=== PATIENT | female | born 1980 | race Caucasian/White ===

== ENCOUNTER 2019-09-16 22:47 | Emergency (ER) | payer OTHER, SELFPAY ==
[2019-09-16 22:55] VITALS: BP 135/85; PULSE 93; RESP 18; TEMP 36.8; O2SAT 100
--- NOTE | 2019-09-16 23:13 | PC.NURSE ---
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 Pt. tearful and crying thru process. Then pt. requests to sign AMA form and doesn't want to stay for further eval. or testing. Pt. reports not wanting to come to hospital anyway and that she has no phone and no one to call. AMA form signed by pt. c all risks/benefits explained. Pt. [place] AMA prior to ERP evaluation.
== END 2019-09-16 23:18 | disposition left against medical advice (07) ==
LOC: CHSED 22:52
PROVIDERS: Emergency Provider Emergency Medicine; PCP Family Medicine
DX: Z53.8 Procedure and treatment not carried out for other reasons (principal)
CPT/HCPCS: 99199

== ENCOUNTER 2019-09-17 01:11 | Emergency (ER) | payer OTHER, SELFPAY ==
--- NOTE | ~2019-09-17 | CT_ITS ---
EXAMINATION: CT cervical spine wo con DATE: 09/17/2019 02:21 INDICATION: Neck pain TECHNIQUE: Computed tomography (CT) of the cervical spine was performed without intravenous contrast. The dose-length product (DLP) was 343.86 mGy-cm. Automated exposure control and iterative reconstruc tion technique were employed. COMPARISON: None FINDINGS: There is no fracture, dislocation, or subluxation. The vertebral body heights, alignment, a nd intervertebral disc spaces are normal. The odontoid is intact. The prevertebral soft tissues are n ormal. IMPRESSION: 1. No acute osseous abnormality. Reviewed, dictated and finalized at location A.
--- NOTE | ~2019-09-17 | CT_ITS ---
EXAMINATION: CT brain wo con DATE: 09/17/2019 02:20 INDICATION: Head injury. TECHNIQUE: Computed tomography (CT) of the head was performed without intravenous contrast. The mA wa s adjusted according to patient size. Iterative reconstruction technique was employed. The dose-lengt h product was 605.33 mGy-cm. COMPARISON: None FINDINGS: There is no intracranial hemorrhage, acute infarction, or abnormal intracranial mass lesion . The ventricles are normal in size. The mastoid air cells are normal. The paranasal sinuses are alok r. The orbits are normal. There is soft tissue swelling of the right parietal scalp. IMPRESSION: 1. Normal brain. Reviewed, dictated and finalized at location A. IMPRESSION: 1. Normal brain.
--- NOTE | ~2019-09-17 | CT_ITS ---
EXAMINATION: CT facial bones wo con DATE: 09/17/2019 02:22 INDICATION: Right-sided facial pain and swelling TECHNIQUE: Computed tomography (CT) of the facial bones and maxillofacial region was performed withou t intravenous contrast. The dose-length product (DLP) was 343.12 mGy-cm. Automated exposure control a nd iterative reconstruction technique were employed. COMPARISON: None. FINDINGS: There is right facial soft tissue swelling. No facial bone fracture is identified. Bone ali gnment is normal. The globes are intact. There is mild mucosal thickening anteriorly in the right max illary sinus. The paranasal sinuses are otherwise well aerated. The mastoid air cells are clear. IMPRESSION: 1. Right facial soft tissue swelling without acute facial bone fracture. Reviewed, dictated and finalized at location A.
[2019-09-17 01:18] VITALS: BP 149/86; PULSE 97; RESP 18; TEMP 36.6; O2SAT 97
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
[2019-09-17] MEDS: KETOROLAC (*BKC) 60 MG/2 ML VIAL IM (01:38)
[2019-09-17 01:52] LABS: Pregnancy On Board Control Positive; Urine Pregnancy Test Negative
[2019-09-17 02:58] VITALS: BP 119/72; PULSE 87; RESP 18; TEMP 36.6; O2SAT 99
== END 2019-09-17 03:04 | disposition home or self-care (01) ==
PROVIDERS: Emergency Provider Emergency Medicine; PCP Family Medicine
DX: S06.0X0A Concussion without loss of consciousness, initial encounter (principal); S00.83XA Contusion of other part of head, initial encounter; Y04.2XXA Assault by strike against or bumped into by another person, initial encounter
CPT/HCPCS: 70450; 70486; 72125; 81025; 96372; 99283; 99284; J1885

== ENCOUNTER 2020-03-05 08:13 | Emergency (ER) | payer OTHER, SELFPAY ==
--- NOTE | ~2020-03-05 | CT_ITS ---
EXAMINATION: CT brain wo con INDICATION: Bilateral arm weakness COMPARISON: 09/17/2019 TECHNIQUE: Standard unenhanced head CT. The dose-length product (DLP) was 605.33 mGy-cm. The mA was a djusted according to patient size. Iterative reconstruction technique was employed. FINDINGS: There is no intracranial hemorrhage, acute infarction, or abnormal mass lesion. The ventric les are normal. There is no abnormal mass effect or midline shift. The yañez-white matter differentiat ion is normal. The basal cisterns are patent. The orbits are normal. The paranasal sinuses, mastoids and calvarium are normal. IMPRESSION: 1. No acute intracranial abnormality. Reviewed, dictated and finalized at location A. ENSING OPTICIAN APPRENTICE
--- NOTE | ~2020-03-05 | CT_ITS ---
EXAMINATION: CT cervical spine wo con DATE: 03/05/2020 09:47 INDICATION: Neck pain and bilateral arm weakness TECHNIQUE: Computed tomography (CT) of the cervical spine was performed without intravenous contrast. The dose-length product (DLP) was 384.68 mGy-cm. Automated exposure control and iterative reconstruc tion technique were employed. COMPARISON: 09/17/2019 FINDINGS: There is no fracture, dislocation, or subluxation. The vertebral body heights, alignment, a nd intervertebral disc spaces are normal. The paravertebral soft tissues are unremarkable. IMPRESSION: 1. No acute osseous abnormality. Reviewed, dictated and finalized at location A. LSTERY RESTORER
[2020-03-05 08:20] VITALS: BP 156/87; PULSE 70; RESP 20; TEMP 36.7; O2SAT 98
--- NOTE | 2020-03-05 08:27 | ED.UPPEXIN ---
HPI - Extremity Injury (Upper) General Chief Complaint: Extremity Injury, Upper Stated Complaint: Cant lift right arm Time Seen by Provider: 03/05/20 08:34 Source: patient Mode of arrival: ambulatory Limitations: no limitations Related Data Allergies Allergy/AdvReac Type Severity Reaction Status Date / Time Penicillins Allergy Unknown Hives Verified 07/18/15 07:57 [facility] Past Medical History Medical History (Updated 09/18/19 @ 00:00 by Background Daemon) Patient denies medical problems Social History Social History Smoking status: Never smoker Alcohol intake: never Discharge Plan Discharge Prescriptions: No Action oxycodone-acetaminophen [Percocet] 5-325 mg tablet 1 tablet PO Q6H PRN (Reason: pain) Qty: 14 RF: 0
--- NOTE | 2020-03-05 08:58 | ED.NEUROSD ---
HPI - Neuro Symptoms/Deficit General Chief Complaint: Extremity Injury, Upper Stated Complaint: Cant lift right arm Time Seen by Provider: 03/05/20 08:34 Source: patient Mode of arrival: ambulatory Limitations: no limitations History of Present Illness HPI Narrative: 39-year-old woman was previously well comes into the emergency department today complaining of weakness of her arms and pain in her neck. The pain in her neck started about 3 weeks ago and was worse with movement. Since then she also noticed that she feels the need to urinate but then can go. She has had no incontinence. She states her arm weakness started about 3 days ago and this morning she cannot lift her right arm. She has weakness in her left arm and difficulty grabbing objects. She states that she has tingling in her arms but she has no pain. She denies recent illness, trauma, or prior similar symptoms. She denies headache, fever, nausea, vomiting, weakness, numbness or tingling elsewhere, or changes in vision. Onset (ago): week(s) (3) Location: left arm and right arm History of same: No Severity: severe Quality: weak and tingling Relieving factors: none Exacerbating factors: none Context: gradual onset On Anticoagulants: No Treatments Prior to Arrival: none Related Data Allergies Allergy/AdvReac Type Severity Reaction Status Date / Time Penicillins Allergy Unknown Hives Verified 03/05/20 16:33 Review of Systems Constitutional: Constitutional: Denies chills and Denies fever(s) Eyes: Eyes: Denies change in vision and Denies photophobia ENT: Denies dysphagia, Denies nasal congestion and Denies sore throat Cardiovascular: Cardiovascular: Denies chest pain and Denies radiating jaw, neck or arm pain Respiratory: Respiratory: Denies cough, Denies dyspnea and Denies wheezing Gastrointestinal: Gastrointestinal: Denies abdominal pain, Denies diarrhea, Denies nausea and Denies vomiting Genitourinary: Genitourinary: Denies hematuria, Denies nocturia and Denies dysuria Musculoskeletal: Musculoskeletal: Denies back pain, Denies arthralgias and Denies joint swelling Integumentary/Breasts: Skin/Breast: Denies pruritus, Denies erythema and Denies rash Neurologic: Denies vertigo, Denies dizziness and Denies syncope Psychiatric: Psychiatric: Denies anxiety and Denies depression Endocrine: Endocrine: Denies excessive sweating and Denies polyuria Hematologic/Lymphatic: Hematologic/Lymphatic: Denies easy bleeding and Denies easy bruising Allergic/Immunologic: Allergic/Immunologic: Denies lip swelling and Denies tongue swelling PMFSH Past Medical History Medical History Patient denies medical problems Surgical History Surgical History H/O umbilical hernia repair after bowel incarceration Social History Social History Smoking status: Never smoker Alcohol intake: never Substance use: never Exam Const: General: healthy appearing and alert Orientation/consciousness: patient oriented x3 Limitations: no limitations Other: mild acute distress HENMT: Head: normal to inspection Ears: external ears normal, TM's normal bilaterally and EAC's normal General nose exam: Normal nares present Face and sinus: normal facial exam Mouth: Yes moist mucous membranes Throat: posterior oropharynx normal Eyes: Conjunctivae: conjunctivae normal Pupils: Equal, round and reactive pupils present EOM: EOMs intact bilaterally Resp: Effort & Inspection: normal respiratory effort and not labored Auscultation: clear to auscultation bilaterally, no rales, no rhonchi and no wheezes Cardio: Rate: regular rate Rhythm: regular rhythm Heart sounds: no murmurs Skin: General skin exam: normal color, no jaundice and no pallor Rashes: no rashes Neuro: General: patient oriented x3 and CN's II-XI
[2020-03-05 09:07] LABS: Basophils Absolute Auto 0.02 K/mm3 (0.00-0.10); Basophils Percent Auto 0.3 % (0.0-1.0); Eosinophils Absolute Auto 0.11 K/mm3 (0.02-0.50); Eosinophils Percent Auto 1.4 % (1.0-6.0); Hematocrit 38.9 % (35.0-49.0); Hemoglobin 12.5 g/dL (12.0-15.0); Immature Granulocyte Absolute 0.02 K/mm3 (0.00-0.00); Immature Granulocyte Percent A 0.3 % (0.0-0.0); Lymphocytes Absolute Auto 1.88 K/mm3 (1.10-4.50); Lymphocytes Percent Auto 24.4 % (18.0-42.0); Mean Corpuscular HGB Conc 32.1 g/dL (32.0-36.0); Mean Corpuscular Hemoglobin 29.2 pg (27.0-31.0); Mean Corpuscular Volume 90.9 fL (78.0-102.0); Mean Platelet Volume 8.8 fl (9.2-11.8); Monocytes Absolute Auto 0.53 K/mm3 (0.10-0.90); Monocytes Percent Auto 6.9 % (2.0-11.0); Neutrophils Absolute Auto 5.2 K/mm3 (1.7-7.2); Neutrophils Percent Auto 66.7 % (50.0-70.0); Platelet Count Result 282 K/mm3 (150-420); Red Blood Count 4.28 M/mm3 (4.20-5.40); Red Cell Distribution Width 12.2 % (11.6-14.4); White Blood Count 7.7 K/mm3 (4.8-10.8)
[2020-03-05 09:22] LABS: Add Urine Microscopic? YES; Appearance Urine Clear (Clear); Bilirubin Urine Negative (Negative); Blood Urine 2+ (Negative); Color Urine Yellow (Yellow); Glucose Urine UA Negative (Negative); Ketones Urine Negative (Negative); Leukocyte Esterase Ur Negative (Negative); Nitrate Urine Negative (Negative); Protein Urine Negative (Negative); Specific Grav Ur >= 1.030 (1.010-1.020); Urobilinogen Urine 0.2 mg/dL (0.2-1.0)
[2020-03-05 09:22] LABS: D Dimer 0.19 mg/L (0.19-0.50); INR 1.1; Partial Thromboplastin Time 30.9 SEC (22.3-31.6); Prothrombin Time 10.9 Seconds (9.64-11.0)
[2020-03-05 09:23] LABS: Alanine Aminotransferase 25 U/L (14-59); Albumin Level 3.8 g/dL (3.4-5.0); Alkaline Phosphatase 66 U/L (46-116); Anion Gap 9 mmol/L (8-16); Aspartate Amino Transferase 19 U/L (15-37); Bilirubin,Total 0.3 mg/dL (0.00-1.00); Blood Urea Nitrogen 12 mg/dL (7-18); CRP < 0.5 mg/dL (0.0-0.9); Calcium 9.3 mg/dL (8.5-10.1); Carbon Dioxide 29 mmol/L (21-32); Chloride 105 mmol/L (98-108); Estimated CRCL calculation 93 ml/min; Estimated Glomerular Filt Rate > 60; Glucose 101 mg/dL (70-99); Osmolality Calculated 295 mOsm/kg (285-295); Potassium 3.1 mmol/L (3.5-5.1); Sodium 143 mmol/L (136-145); Total Protein 7.1 g/dL (6.4-8.2)
[2020-03-05 09:26] LABS: Squamous Epithelial Cell Urine Few /hpf (Few); WBC Urine 0-3 /hpf (0-3)
[2020-03-05 09:27] LABS: Bacteria Urine Trace /hpf; Mucus Urine Heavy /lpf; Pregnancy On Board Control Positive; Urine Pregnancy Test Negative
[2020-03-05 09:41] LABS: Creatine Kinase 130 U/L (26-192); Lactate Dehydrogenase 198 U/L (81-234)
--- NOTE | 2020-03-05 09:43 | PC.NURSE ---
pt over for ct and returned at this time. no complaints voiced.
--- NOTE | 2020-03-05 10:35 | PC.NURSE ---
call to [facility], spoke with shakira, no beds available. call to [facility], spoke with yury, now speaking with dr lancaster. awaiting call back. report to sincere childress.
--- NOTE | 2020-03-05 11:31 | PC.NURSE ---
PT CARE IS ASSUMED AT THIS TIME. PT IS WALKING AROUND ROOM WITH LEFT SHOULDER UP AND RIGHT SHOULDER HANGING DOWN. STATES SHE IS UNABLE TO DIAL THE PHONE BECAUSE SHE CANNOT LIFT HER ARMS. PT IS ASSISTED IN CALLING OFF WORK FOR TODAY. PT THEN ASKS FOR MEAL TRAY. PT IS OTHERWISE NORMAL IN NEURO ASSESSMENT.
--- NOTE | 2020-03-05 11:50 | PC.NURSE ---
THIS RN INTO ROOM, PT STILL UNABLE TO USE HER HANDS. RN HELPS TO FEED PATIENT MEAL TRAY - PT IS TEARFUL AND STATES THAT SHE THINKS SHE NEEDS TO SIGN OUT BECAUSE SHE HAS NO ONE TO HELP TAKE CARE OF HER CHILDREN. PT IS NOTIFIED OF THE IMPORTANCE OF SEEING A NEUROLOGIST. PT IS ABLE TO SIGN AMA FORM. PT STATES SHE WILL HAVE TO WALK HOME, OUT TO [facility]
== END 2020-03-05 12:30 | disposition left against medical advice (07) ==
LOC: CHSED 08:16
PROVIDERS: Emergency Provider Emergency Medicine; PCP Family Medicine
DX: R53.1 Weakness (principal)
CPT/HCPCS: 36415; 70450; 72125; 80053; 81001; 81025; 82550; 83615; 85025; 85380; 85610; 85730; 86140; 99283; 99284

== ENCOUNTER 2020-03-05 16:27 | Emergency (ER) | payer OTHER, SELFPAY ==
[2020-03-05 16:31] VITALS: BP 156/84; PULSE 72; RESP 17; TEMP 35.6; O2SAT 100
--- NOTE | 2020-03-05 16:40 | PC.NURSE ---
patient brought back to ED room 21 with c/o right arm pain. see triage notes. resting on stretcher. waiting for provider to see patient. updated on expected wait time.
--- NOTE | 2020-03-05 16:55 | PC.NURSE ---
provider in room now.
--- NOTE | 2020-03-05 17:06 | ED.GENADULT ---
HPI - General Adult General Chief complaint: Extremity Injury, Upper Stated complaint: right arm Time Seen by Provider: 03/05/20 16:43 Source: patient Mode of arrival: ambulatory Limitations: no limitations History of Present Illness HPI narrative: Patient is a 39-year-old female who presents to emergency department for evaluation of right upper extremity pain was evaluated at [facility] and left AGAINST MEDICAL ADVICE had imaging of the brain and cervical spine which were unremarkable patient for the last 3 days has had progressively worsening pain to the right thoracic musculature and shoulder. Patient notes difficulty with lifting the extremity which she notes is due to pain. Patient also notes pain in the left upper extremity but the right is worse than the left when it comes to range of motion and activity. Patient notes 3 weeks ago having had neck pain which resolved. Patient has not seen primary care for this denies injury or trauma presents uncomfortable but in no distress Related Data Allergies Allergy/AdvReac Type Severity Reaction Status Date / Time Penicillins Allergy Unknown Hives Verified 03/05/20 16:33 Review of Systems Review of Systems: All systems reviewed & are unremarkable except as noted in HPI and below PMFSH Past Medical History Medical History Patient denies medical problems Surgical History Surgical History H/O umbilical hernia repair after bowel incarceration Social History Social History Smoking status: Never smoker Alcohol intake: never Substance use: never Exam Narrative: Exam Narrative: GENERAL: Well-appearing, well-nourished, and in no acute distress. HEAD: Normocephalic, atraumatic. EYES: PERRLA and EOMI. ENT: Nares clear, no rhinorrhea or epistaxis. Mucous membranes moist. NECK: Supple. No adenopathy or masses. CHEST: Clear to auscultation. No respiratory distress. No wheezes rales or rhonchi HEART: Regular rate and rhythm. No murmur heard. Normal peripheral pulses. EXTREMITIES: Tenderness of the right paraspinal thoracic musculature. Right paraspinal cervical musculature tenderness. patient is able to lift the bilateral shoulders to the level of the shoulder but not above patient has normal range of motion of the elbow joints and of the hands SKIN: Warm, dry, no rash. NEURO: No focal deficits. Alert and oriented x3. Neurovascularly intact. Capillary refill less than 2 seconds PSYCH: Normal mood and affect. Course Course Emergency Course: Patient in the room reviewed imaging from [facility] patient is felt to be okay to be discharged home will be placed on muscle relaxers and anti-inflammatories provided with reasons to return patient is afebrile nontoxic-appearing no distress patient will be discharged home at this time after being given medications in the emergency department Vital Signs Vital signs: Vital Signs Temperature 96.1 F L 03/05/20 16:31 Pulse Rate 72 03/05/20 16:31 Respiratory Rate 17 03/05/20 16:31 Blood Pressure 156/84 H 03/05/20 16:31 Pulse Oximetry 100 03/05/20 16:31 Temperature 96.1 F L 03/05/20 16:31 Pulse Rate 72 03/05/20 16:31 Respiratory Rate 17 03/05/20 16:31 Blood Pressure 156/84 H 03/05/20 16:31 Pulse Oximetry 100 03/05/20 16:31 Medical Decision Making MDM Narrative Medical decision making narrative: Patients injury or pain is consistent with musculoskeletal etiology. No signs of neurological or vascular compromise on exam. Compartments and tisues are soft without signs of compartment syndrome. Pain is felt appropriate for further evaluation on an outpatient basis. Vital Signs Vital Signs: Vital Signs Temperature 96.1 F L 03/05/20 16:31 Pulse Rate 72 03/05/20 16:31 Respiratory Rate 17 03/05/20 16:31 Blood Pressur
[2020-03-05] MEDS: KETOROLAC (*BKC) 60 MG/2 ML VIAL IM (17:10)
[2020-03-05] MEDS: diazePAM (*CRX) 5 MG TABLET PO (17:10)
--- NOTE | 2020-03-05 17:14 | PC.NURSE ---
patient medicated as ordered. registration in room. discharge is done when registration is complete. has friend in room. already talking about going to another facility to be seen.
== END 2020-03-05 17:40 | disposition home or self-care (01) ==
PROVIDERS: Emergency Provider Emergency Medicine; PCP Family Medicine
DX: M54.12 Radiculopathy, cervical region (principal)
CPT/HCPCS: 96372; 99283; A9270; J1885

== ENCOUNTER 2020-10-12 12:41 | Emergency (ER) | payer OTHER, SELFPAY ==
[2020-10-12 12:53] VITALS: BP 156/100; PULSE 88; RESP 16; TEMP 36.7; O2SAT 100
[2020-10-12 13:05] LABS: Basophils Percent Auto 0.3 % (0.2-1.2); Eosinophils Absolute Auto 0.1 K/mm3 (0-0.3); Eosinophils Percent Auto 1.8 % (0-4.4); Hematocrit 42.7 % (37.0-47.0); Hemoglobin 13.7 g/dL (12.0-15.0); Immature Granulocyte Absolute 0.02 K/mm3 (0.00-0.031); Immature Granulocyte Percent A 0.3 % (0-0.5); Lymphocytes Absolute Auto 2.21 K/mm3 (0.9-3.2); Lymphocytes Percent Auto 30.4 % (18.3-44.2); Mean Corpuscular HGB Conc 32.1 g/dl (32-36); Mean Corpuscular Hemoglobin 29.3 pg (26-34); Mean Corpuscular Volume 91.2 fl (80-100); Monocytes Absolute Auto 0.4 K/mm3 (0.1-0.6); Monocytes Percent Auto 5.8 % (2.6-8.5); Neutrophils Absolute Auto 4.5 K/mm3 (1.3-6.7); Neutrophils Percent Auto 61.4 % (45.5-73.1); Platelet Count Result 239 k/mm3 (150-375); Red Blood Count 4.68 M/mm3 (4.2-5.4); Red Cell Distribution Width 12.9 % (11.5-14.5); White Blood Count 7.3 K/mm3 (4.5-10.0)
[2020-10-12 13:09] LABS: Add Urine Microscopic? YES; Appearance Urine Cloudy (Clear); Bacteria Urine Trace /hpf; Bilirubin Urine Negative (Negative); Blood Urine 1+ (Negative); Color Urine Yellow (Yellow); Glucose Urine UA Negative (Negative); Ketones Urine Negative (Negative); Leukocyte Esterase Ur Negative LEU/UL (Negative); Mucus Urine Moderate /lpf; Nitrate Urine Negative (Negative); Protein Urine Negative (Negative); Specific Grav Ur 1.019 (1.001-1.035); Squamous Epithelial Cell Urine Many /hpf (Few); Urobilinogen Urine Negative mg/dL (<2.0); WBC Urine 0-3 /hpf
[2020-10-12 13:17] LABS: Alanine Aminotransferase 16 U/L (4-35); Albumin Level 4.6 g/dL (3.5-5.1); Alkaline Phosphatase 60 U/L (38-126); Anion Gap 8 mmol/L (8-16); Aspartate Amino Transferase 24 U/L (14-36); Bilirubin,Total 0.4 mg/dL (0.2-1.3); Blood Urea Nitrogen 9 mg/dL (7-17); Carbon Dioxide 26 mmol/L (22-30); Chloride 108 mmol/L (98-107); Estimated CRCL calculation 103 ml/min; Estimated Glomerular Filt Rate > 60; Glucose 93 mg/dL (65-105); Lipase 48 U/L (23-300); Potassium 3.8 mmol/L (3.4-5.0); Sodium 142 mmol/L (137-145)
--- NOTE | 2020-10-12 15:24 | PC.NURSE ---
no answer when called from waiting room
== END 2020-10-13 03:49 | disposition left against medical advice (07) ==
PROVIDERS: Emergency Provider Emergency Medicine; PCP Family Medicine
DX: R10.9 Unspecified abdominal pain (principal)
CPT/HCPCS: 36415; 80053; 81001; 81025; 83690; 85025; 99199

== ENCOUNTER 2021-09-21 20:57 | Emergency (ER) | payer OTHER, SELFPAY ==
--- NOTE | ~2021-09-21 | XR_ITS ---
EXAMINATION: XR foot RT min 3V DATE: 09/21/2021 21:38 INDICATION: Right foot pain, possible foreign body TECHNIQUE: Dorsoplantar, lateral, and 2 oblique views of the right foot were obtained. COMPARISON: None. FINDINGS: Bone alignment is normal. There is no fracture. The joint spaces are normal. No radiopaque foreign body is identified. IMPRESSION: 1. No acute osseous abnormality or radiopaque foreign body. Reviewed, dictated and finalized at location F.
--- NOTE | ~2021-09-21 | XR_ITS ---
EXAMINATION: XR foot LT min 3V DATE: 09/21/2021 21:38 INDICATION: Left foot pain, possible foreign body TECHNIQUE: Dorsoplantar, lateral, and 2 oblique views of the left foot were obtained. COMPARISON: None. FINDINGS: Bone alignment is normal. There is no fracture. The joint spaces are normal. No radiopaque foreign body is identified. IMPRESSION: 1. No acute osseous abnormality a radiopaque foreign body identified. Reviewed, dictated and finalized at location F.
[2021-09-21 21:10] VITALS: BP 120/80; PULSE 80; RESP 16; TEMP 36.1; O2SAT 98
[2021-09-21] MEDS: KETOROLAC 30 MG/ML VIAL (*BKC) IM (21:35)
[2021-09-21] MEDS: cefTRIAXone 1 GM, LIDOCAINE HCL 1% LOCAL INJ 2.1 ML IM (21:36)
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
--- NOTE | 2021-09-21 22:23 | PC.NURSE ---
xeroform and coban to both feet
[2021-09-21 22:30] VITALS: BP 132/60; PULSE 80; RESP 18; TEMP 36.4; O2SAT 98
== END 2021-09-21 22:40 | disposition home or self-care (01) ==
PROVIDERS: Emergency Provider Emergency Medicine; PCP Family Medicine
DX: K02.9 Dental caries, unspecified (principal); S90.821A Blister (nonthermal), right foot, initial encounter
CPT/HCPCS: 73630; 96372; 99284; J0696; J1885

== ENCOUNTER 2022-01-12 15:59 | Observation (INO) | payer OTHER, SELFPAY ==
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
[2022-01-12 16:00] VITALS: BP 131/64; PULSE 69; RESP 16; TEMP 36.6; O2SAT 98
[2022-01-12 16:51] LABS: Basophils Absolute Auto 0.02 K/mm3 (0.00-0.10); Basophils Percent Auto 0.3 % (0.0-1.0); Eosinophils Absolute Auto 0.04 K/mm3 (0.02-0.50); Eosinophils Percent Auto 0.5 % (1.0-6.0); Hematocrit 39.5 % (35.0-49.0); Hemoglobin 13.1 g/dL (12.0-15.0); Immature Granulocyte Absolute 0.02 K/mm3 (0.00-0.00); Immature Granulocyte Percent A 0.3 % (0.0-0.0); Lymphocytes Absolute Auto 1.76 K/mm3 (1.10-4.50); Lymphocytes Percent Auto 22.2 % (18.0-42.0); Mean Corpuscular HGB Conc 33.2 g/dL (32.0-36.0); Mean Corpuscular Volume 90.4 fL (78.0-102.0); Mean Platelet Volume 8.9 fl (9.2-11.8); Monocytes Absolute Auto 0.46 K/mm3 (0.10-0.90); Monocytes Percent Auto 5.8 % (2.0-11.0); Neutrophils Absolute Auto 5.6 K/mm3 (1.7-7.2); Neutrophils Percent Auto 70.9 % (50.0-70.0); Platelet Count Result 297 K/mm3 (150-420); Red Blood Count 4.37 M/mm3 (4.20-5.40); Red Cell Distribution Width 12.4 % (11.6-14.4); White Blood Count 7.9 K/mm3 (4.8-10.8)
[2022-01-12 17:04] LABS: Alanine Aminotransferase 32 U/L (14-59); Albumin Level 3.3 g/dL (3.4-5.0); Alkaline Phosphatase 72 U/L (46-116); Anion Gap 5 mmol/L (8-16); Aspartate Amino Transferase 51 U/L (15-37); Bilirubin,Total 0.2 mg/dL (0.00-1.00); Blood Urea Nitrogen 8 mg/dL (7-18); Calcium 8.4 mg/dL (8.5-10.1); Carbon Dioxide 30 mmol/L (21-32); Chloride 104 mmol/L (98-108); Creatine Kinase 964 U/L (26-192); Estimated CRCL calculation 95 ml/min; Estimated Glomerular Filt Rate > 60; Glucose 127 mg/dL (70-99); Osmolality Calculated 288 mOsm/kg (285-295); Sodium 139 mmol/L (136-145); Total Protein 6.6 g/dL (6.4-8.2)
[2022-01-12 17:19] LABS: SPREG INTERNAL CONTROL Positive; Serum Qual hCG Negative
[2022-01-12] MEDS: SODIUM CHLORIDE 0.9% IV 1,000 ML 999 ML IV CONT (17:29)
[2022-01-12] MEDS: ONDANSETRON INJ 4 MG/2 ML VIAL IV PUSH (17:30)
[2022-01-12] MEDS: KETOROLAC 30 MG/ML VIAL (*BKC) IV PUSH (17:30)
[2022-01-12 17:49] VITALS: BP 131/64; PULSE 69; RESP 16; O2SAT 98
[2022-01-12 17:50] LABS: Add Urine Microscopic? YES; Appearance Urine Clear (Clear); Bilirubin Urine Negative (Negative); Blood Urine 3+ (Negative); Color Urine Yellow (Yellow); Glucose Urine UA Negative (Negative); Ketones Urine Negative (Negative); Leukocyte Esterase Ur Negative (Negative); Nitrate Urine Negative (Negative); Protein Urine Negative (Negative); Specific Grav Ur 1.025 (1.010-1.020); pH Urine 6.5 (5.0-8.0)
[2022-01-12 18:01] LABS: Amorphous Sediment Urine Moderate; Bacteria Urine 1+ /hpf; Mucus Urine Heavy /lpf; Squamous Epithelial Cell Urine Many /hpf (Few); WBC Urine 0-3 /hpf (0-3)
[2022-01-12 18:02] LABS: Amphetamine Screen Urine Positive (Negative); Barbiturate Screen Urine Negative (Negative); Benzodiazepines Screen Urine Negative (Negative); Cannabinoid Screen Urine Positive (Negative); Cocaine Screen Urine Negative (Negative); Methadone Screen Urine Negative (Negative); Opiate Screen Urine Negative (Negative); Phencyclidine Screen Urine Negative (Negative)
[2022-01-12] MEDS: TETANUS,DIPHTHERIA,AC PERTUSSIS ADULT 0.5 ML (ADACEL) IM (18:18)
[2022-01-12] MEDS: KCL 20 MEQ/SW 100 ML 100 ML 50 MEQ IVPB (18:20)
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
--- NOTE | 2022-01-12 20:12 | ADMGEN ---
This patient, Brook Low, was admitted to 2nd Floor Room 205-2. Patient oriented to hospital policies and general routines including ID bracelet, bed and alarms, visiting hours, pain management, procedures, bathroom and other care routines, personal items, smoking policy, room service/diet, and visiting hours. Information on how to activate the Rapid Response Team has been discussed. Patient are encouraged to report perceived risks to care and to ask questions if they do not understand what they are told or what they should do.
[2022-01-12 20:23] VITALS: BMI 29.1
[2022-01-12] MEDS: SODIUM CHLORIDE 0.9% IV 1,000 ML 150 ML IV CONT (20:59)
[2022-01-12] MEDS: HYDROcodone/acetaminophen (*CRX) 5-325 MG TABLET 1 TAB PO (20:59)
[2022-01-13] VITALS: BP 142/87; PULSE 71; RESP 18; TEMP 36.1; O2SAT 98
[2022-01-13] MEDS: HYDROcodone/acetaminophen (*CRX) 5-325 MG TABLET 1 TAB PO ×2 (01:57→06:01)
--- NOTE | 2022-01-13 05:05 | PC.NURSE ---
Pt noted to have dark red blood to urine, pt states she is 2 months late on menstrual cycle, preg was negative in ER.
[2022-01-13 05:28] LABS: Hematocrit 36.4 % (35.0-49.0); Hemoglobin 11.9 g/dL (12.0-15.0); Mean Corpuscular HGB Conc 32.7 g/dL (32.0-36.0); Mean Corpuscular Hemoglobin 29.8 pg (27.0-31.0); Mean Platelet Volume 9.1 fl (9.2-11.8); Platelet Count Result 271 K/mm3 (150-420); Red Cell Distribution Width 12.3 % (11.6-14.4); White Blood Count 8.2 K/mm3 (4.8-10.8)
[2022-01-13 06:09] LABS: Alanine Aminotransferase 32 U/L (14-59); Albumin Level 3.1 g/dL (3.4-5.0); Alkaline Phosphatase 69 U/L (46-116); Anion Gap 4 mmol/L (8-16); Aspartate Amino Transferase 45 U/L (15-37); Bilirubin,Total 0.4 mg/dL (0.00-1.00); Blood Urea Nitrogen 5 mg/dL (7-18); Calcium 8.2 mg/dL (8.5-10.1); Carbon Dioxide 29 mmol/L (21-32); Chloride 105 mmol/L (98-108); Estimated CRCL calculation 102 ml/min; Estimated Glomerular Filt Rate > 60; Glucose 91 mg/dL (70-99); Osmolality Calculated 283 mOsm/kg (285-295); Potassium 3.3 mmol/L (3.5-5.1); Sodium 138 mmol/L (136-145); Total Protein 6.1 g/dL (6.4-8.2)
[2022-01-13 08:00] VITALS: BP 130/77; PULSE 67; RESP 18; TEMP 36; O2SAT 96
[2022-01-13] MEDS: traMADol HCL (*CRX) 25 MG TABLET PO (08:25)
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
[2022-01-13 09:28] LABS: Creatine Kinase 659 U/L (26-192)
--- NOTE | 2022-01-13 11:00 | PC.NURSE ---
Charting completed by Janice Hassan, student nurse under this nurses supervision. All charting has been reviewed and agreed with for this shift.
--- NOTE | 2022-01-13 11:07 | PC.NURSE ---
Discharge instructions reviewed with patient. All questions answered. Pt ambulated self to parking lot where her personal vehicle was located.
--- NOTE | 2022-01-16 14:56 | PC.NURSE ---
Invalid phone number.
== END 2022-01-13 11:07 | disposition home or self-care (01) ==
LOC: CHSED 18:34 → CHS2ND 19:26
PROVIDERS: Nurse Practitioner; Admitting Provider Internal Medicine; Emergency Provider Emergency Medicine; PCP Family Medicine; Visit Provider Internal Medicine
DX: T79.6XXA Traumatic ischemia of muscle, initial encounter (principal); S06.0X0A Concussion without loss of consciousness, initial encounter; Y04.2XXA Assault by strike against or bumped into by another person, initial encounter; E87.6 Hypokalemia; M25.519 Pain in unspecified shoulder; F17.210 Nicotine dependence, cigarettes, uncomplicated; F15.10 Other stimulant abuse, uncomplicated; F12.10 Cannabis abuse, uncomplicated
CPT/HCPCS: 36415; 70450; 70486; 71110; 72125; 80053; 80307; 81001; 82550; 82553; 84703; 85025; 85027; 90471; 90715; 96360; 96361; 96365; 96366; 96375; 99285; A9270; G0378; G0379; J1885; J2405; J3480; J7030